=== PATIENT | male | born 1970 | race Caucasian/White ===

== ENCOUNTER 2020-07-27 15:01 | Day surgery (SDC) | payer OTHER ==
[~2020-07-27] VITALS: Ht 182.9 cm; Wt 125.2 kg
[~2020-07-27 15:01] MED LIST changes: -AMLO25TA PO; -ATOR40TA75 PO; -CIPR-250 PO; +CONRAY-60 60% 50ML VIAL (Q9961) As Ordered ONE; -FAMO40TA3 PO; -FLOM0.4C39 PO; +LIDOCAINE 2% 5ML JELLY UROJET As Ordered ONE; -LOSA100T50 PO; -OXYC-1 PO; -RA T500C2 PO; -ULTR50TA8 PO; -tumeric
[2020-07-27] MEDS ORDERED: FAMO40TA3 PO (15:15)
[2020-07-27] MEDS ORDERED: AMLO25TA PO (15:15)
[2020-07-27] MEDS ORDERED: ATOR40TA75 PO (15:15)
[2020-07-27] MEDS ORDERED: tumeric (15:15)
[2020-07-27] MEDS ORDERED: LOSA100T50 PO (15:15)
[2020-07-27] MEDS ORDERED: CIPR-250 PO (15:15)
[2020-07-27] MEDS ORDERED: OXYC-1 PO (15:15)
[2020-07-27] MEDS ORDERED: MIDAZOLAM INJ 2MG/2ML VIAL (J2250 PER 1MG) As Ordered ONE (17:06)
[2020-07-27] MEDS ORDERED: propofoL 200 MG/20 ML VIAL As Ordered ONE (17:06)
[2020-07-27] MEDS ORDERED: fentaNYL 100 MCG/2 ML INJECTION (J3010) As Ordered ONE (17:06)
[2020-07-27] MEDS ORDERED: LIDOCAINE 2% 100MG/5ML SDV (FOR ANES.) As Ordered ONE (17:07)
[2020-07-27] MEDS ORDERED: ONDANSETRON 4MG/2ML VIAL As Ordered ONE (17:08)
[2020-07-27] MEDS ORDERED: dexameTHASONE 4 MG/ML 1ML VIAL (J1100 PER 1MG) As Ordered ONE (17:08)
[2020-07-27] MEDS ORDERED: METOCLOPRAMIDE INJ 10MG/2ML VIAL (J2765 PER 1) As Ordered ONE (17:08)
[2020-07-27] MEDS ORDERED: ceFAZolin SOD 2 GM in IV 1 EA IV ONE (18:00)
[2020-07-27 18:10] VITALS: BP 153/81
[2020-08-10] MEDS ORDERED: RA T500C2 PO (09:26)
--- NOTE | 2020-08-14 07:16 | RO ---
DATE OF OPERATION: 07/27/2020 PREOPERATIVE DIAGNOSIS: Right UPJ calculus. POSTOPERATIVE DIAGNOSIS: Right UPJ calculus. PROCEDURE: Cystoscopy, right retrograde pyelogram and stent insertion. SURGEON: Celestino Mcghee MD ANESTHESIA: MAC. INDICATIONS FOR OPERATION: This is a 49-year-old white male who was diagnosed with right UPJ calculus five days ago. He has continued to have pain and was therefore brought to the operating room for stent insertion. DESCRIPTION OF OPERATION: The patient was anesthetized with MAC anesthesia, placed in the lithotomy position, prepped with Betadine paint, draped in aseptic manner and time out was performed. A 22-Kazakh cystoscope was then inserted into the meatus and advanced under direct vision over 30-degree lens after anesthetizing the urethra with 2% Lidocaine jelly. The bladder was normal. The right ureteral orifice was then catheterized with 5-Kazakh Pollack catheter with the aid of wire guide and retrograde injection of Conray showed an obstruction at the UPJ with hydronephrosis. A wire guide was then passed beyond the stone into the renal pelvis and the Pollack was removed. A 5-Kazakh double-J stent was then passed over this wire and curled well in the renal pelvis and in the bladder when the wire was removed. The distal end was adjusted with a grasping forceps and the bladder was drained. The cystoscope was removed and the patient was awakened and sent to recovery room in stable condition having tolerated the procedure well. Fluoroscopy was used throughout the case to evaluate the obstruction and location and to place the ureteral stent. The patient will be scheduled for ESWL treatment of the right renal calculus. [facility] SHOREMandeep
== END 2020-07-27 18:30 | disposition home or self-care (01) ==
LOC: M SDC 15:01
PROVIDERS: ATTEND Urology
DX: N20.0 Calculus of kidney (principal); I10 Essential (primary) hypertension; E78.2 Mixed hyperlipidemia; E66.9 Obesity, unspecified; Z79.899 Other long term (current) drug therapy
CPT/HCPCS: 52332; 74420; C1769; C2617; J0690; J1100; J2250; J2405; J2765; J3010; Q9961

== ENCOUNTER → 2020-07-27 | Outpatient (CLI) | payer OTHER ==
[~2020-07-27] MED LIST: AMLO25TA PO; ATOR40TA75 PO; CIPR-250 PO; FAMO40TA3 PO; FLOM0.4C39 PO; LOSA100T50 PO; OXYC-1 PO; RA T500C2 PO; ULTR50TA8 PO; tumeric
[2020-07-27 11:30] LABS: APPEARANCE, URINE CLEAR (CLEAR); BACTERIA, URINE AUTO NEGATIVE (NEGATIVE); BILIRUBIN, URINE AUTO NEGATIVE (NEGATIVE); BLOOD, URINE BLOOD NEGATIVE (NEGATIVE); COLOR, URINE YELLOW (YELLOW); GLUCOSE, URINE (UA) AUTO NEGATIVE (NEGATIVE); KETONE, URINE AUTO 2+ mg/dL (NEGATIVE); LEUKOCYTE ESTERASE, URINE AUTO NEGATIVE (NEGATIVE); MUCUS, URINE SMALL (NEGATIVE); NITRITE, URINE AUTO NEGATIVE (NEGATIVE); PROTEIN, URINE AUTO NEGATIVE (NEGATIVE); RBC, URINE AUTO 3 /HPF (0-3); SPECIFIC GRAVITY URINE AUTO 1.019 (1.002-1.035); SQUAMOUS EPITHELIAL CELL UR AU 0 /HPF (0-6); UROBILINOGEN, URINE AUTO 0.2 mg/dL (0.0-2.0); WBC, URINE AUTO 1 /HPF (0-3)
[2020-07-27 11:33] LABS: HEMATOCRIT 44.5 % (42.0-52.0); HEMOGLOBIN 15.1 g/dl (13.5-17.5); MEAN CORPUSCULAR HEMOGLOBIN 31.1 pg (27.0-33.0); MEAN CORPUSCULAR HGB CONC 33.9 g/dl (32.0-36.5); MEAN CORPUSCULAR VOLUME 91.6 fl (80.0-96.0); PLATELET COUNT, AUTOMATED 255 10^3/uL (150-450); RED BLOOD COUNT 4.86 10^6/uL (4.30-6.10); WHITE BLOOD COUNT 12.8 10^3/uL (4.0-10.0)
[2020-07-27 11:44] LABS: INR 1.02; PROTHROMBIN TIME 13.6 SECONDS (11.8-14.0)
[2020-07-27 11:45] LABS: PARTIAL THROMBOPLASTIN TIME 29.6 SECONDS (25.0-38.4)
[2020-07-27 12:02] LABS: CALCIUM LEVEL 9.1 MG/DL (8.5-10.1); CREATININE FOR GFR 1.43 MG/DL (0.70-1.30); GLOMERULAR FILTRATION RATE 56.4 (>60); POTASSIUM SERUM 4.1 MEQ/L (3.5-5.1)
== END ==
LOC: M LAB 09:39
PROVIDERS: ATTEND Urology
DX: N20.0 Calculus of kidney (principal)

== ENCOUNTER → 2020-07-27 | Outpatient (CLI) | payer OTHER | LOC: M LABSMTC 10:12 | PROVIDERS: ATTEND Anesthesiology | DX: Z01.812 Encounter for preprocedural laboratory examination (principal); Z20.828 Contact with and (suspected) exposure to other viral communicable diseases | CPT/HCPCS: C9803; U0002 ==

== ENCOUNTER → 2020-08-12 | Outpatient (CLI) | payer OTHER ==
[~2020-08-12] MED LIST changes: +AMLO25TA PO; +ATOR40TA75 PO; +CIPR-250 PO; -CONRAY-60 60% 50ML VIAL (Q9961) As Ordered ONE; +FAMO40TA3 PO; +FLOM0.4C39 PO; -LIDOCAINE 2% 5ML JELLY UROJET As Ordered ONE; +LOSA100T50 PO; +OXYC-1 PO; +RA T500C2 PO; +ULTR50TA8 PO; +tumeric
== END ==
LOC: M LABSMTC 09:30
PROVIDERS: ATTEND Anesthesiology
DX: Z01.812 Encounter for preprocedural laboratory examination (principal); Z20.828 Contact with and (suspected) exposure to other viral communicable diseases
CPT/HCPCS: C9803; U0003

== ENCOUNTER 2020-08-17 09:07 | Day surgery (SDC) | payer OTHER ==
[~2020-08-17] VITALS: Ht 182.9 cm; Wt 125.6 kg
[~2020-08-17 09:07] MED LIST changes: -FLOM0.4C39 PO; +LR 1,000 ML IV ONE; -ULTR50TA8 PO; +ceFAZolin SOD 2 GM in IV 1 EA IV ONE
[2020-08-17] MEDS ORDERED: propofoL 200 MG/20 ML VIAL As Ordered ONE ×2 (09:48→09:49)
[2020-08-17] MEDS ORDERED: FLOM0.4C39 PO (09:56)
[2020-08-17] MEDS ORDERED: MIDAZOLAM INJ 2MG/2ML VIAL (J2250 PER 1MG) As Ordered ONE (09:56)
[2020-08-17] MEDS ORDERED: ULTR50TA8 PO (09:56)
[2020-08-17] MEDS ORDERED: fentaNYL 100 MCG/2 ML INJECTION (J3010) As Ordered ONE (09:57)
[2020-08-17] MEDS ORDERED: LIDOCAINE 2% 100MG/5ML SDV (FOR ANES.) As Ordered ONE (10:16)
[2020-08-17] MEDS ORDERED: ONDANSETRON 4MG/2ML VIAL As Ordered ONE (10:16)
--- NOTE | 2020-08-17 10:45 | ROOPDOC ---
[facility] Report Of Operation Report of Operation DATE OF PROCEDURE: 08/17/20 PREPROCEDURE DIAGNOSIS: Kidney stone. POSTPROCEDURE DIAGNOSIS: Kidney stone. PROCEDURE: Right extracorporeal shock wave lithotripsy. SURGEON: Ankita Barrera MD CONCESSION STAND ATTENDANT: None. ANESTHESIA: Monitored anesthesia care (MAC). OPERATIVE INDICATIONS: This is a 49-year-old male recently found to have a 7mm obstructing right ureteropelvic junction (UPJ) stone. He had a right ureteral stent placed at that time. He is brought to the operating room today for treatment for the stone. DESCRIPTION OF PROCEDURE: The patient was brought to the operating room and monitored anesthesia care (MAC) was administered. Prophylactic antibiotics were infused. He was then placed in the supine position for right-sided extracorporeal shock wave lithotripsy. The stone could be seen adjacent to the proximal aspect of the stent on fluoroscopy. Fluoroscopy was utilized to monitor stone position and fragmentation throughout the procedure. Shock waves were then delivered to the right UPJ stone, ungated. It appeared to fragment well. There were no arrhythmias. After 2,500 shocks, the procedure was concluded. The patient was then awakened from anesthesia and transported to the recovery room in stable condition. Estimated blood loss: Zero mL. Complications: None. Specimens: None. Plan: The patient will followup in the clinic in a few weeks with imaging prior to assess for residual stone burden. If his stone is completely gone, we will remove his stent at that time. ANKITA BARRERA MD Aug 17, 2020 10:32
[2020-08-17 12:00] VITALS: BP 157/87
--- NOTE | 2020-08-17 19:35 | ECGEPIP ---
[facility] Test Date: 2020-08-17 Pat Name: ROSI SHARP Department: Room: - Gender: Male Quality Management Coordinator: ZULMA : 1970 Requested By: Jeramie Young Order Number: [id number] Reading MD: Amauri Keys Measurements Intervals [place] Rate: 71 P: 58 MD: 158 QRS: 11 QRSD: 97 T: 32 QT: 368 QTc: 402 Interpretive Statements SINUS RHYTHM NO PRIOR Electronically Signed on 08-17-2020 19:35:38 EDT by Amauri Keys
== END 2020-08-17 12:20 | disposition home or self-care (01) ==
LOC: M SDC 09:07
PROVIDERS: ATTEND Urology
DX: N20.0 Calculus of kidney (principal); I10 Essential (primary) hypertension; E78.5 Hyperlipidemia, unspecified; K21.9 Gastro-esophageal reflux disease without esophagitis; Z79.899 Other long term (current) drug therapy
CPT/HCPCS: 50590; 93005; J0690; J2250; J2405; J3010

== ENCOUNTER → 2020-08-17 | Outpatient (CLI) | payer OTHER ==
--- NOTE | 2020-08-21 11:49 | REP ---
KUB ABDOMEN AND PELVIS HISTORY: Renal calculus. Right ureteral stent. TECHNIQUE: Single AP view of the abdomen and pelvis is performed. FINDINGS: Bowel gas pattern is normal with no bowel obstruction. A right ureteral stent is visualized. The proximal end is coiled within the region of the right renal pelvis and the distal end in the region of the urinary bladder. There is an oval calcification overlying the stent in the region of the ureteropelvic junction. The calcification presumably represents a ureteral calculus measuring approximately 10 x 5 mm. I have o prior study for comparison. There are mild degenerative changes of the spine. IMPRESSION: Right ureteral stent appears to be in good position. Along the proximal stent in the region of the ureteropelvic junction, there appears to be an oval calculus measuring about 10 x 5 mm. MTDD
== END ==
LOC: M RAD 08:48
PROVIDERS: ATTEND Nurse Practitioner Women's Health
DX: N20.0 Calculus of kidney (principal)

== ENCOUNTER → 2020-09-11 | Outpatient (CLI) | payer OTHER ==
[~2020-09-11] MED LIST changes: +FLOM0.4C39 PO; -LR 1,000 ML IV ONE; +ULTR50TA8 PO; -ceFAZolin SOD 2 GM in IV 1 EA IV ONE
--- NOTE | 2020-09-11 09:40 | REP ---
INDICATION: KIDNEY CALCULI. COMPARISON: August 17, 2020.. TECHNIQUE: Two supine views. FINDINGS: A double pigtail right ureteral stent is again noted in position. Bowel gas pattern is normal. Psoas margins and flank stripes are intact. No mass, or organomegaly. There is a right ureteral calculus again noted along the course of the right ureteral stent overlapping the right transverse process at L4 on today's film. IMPRESSION: Right mid ureteral calculus persists. Right double pigtail ureteral stent remains in good position. <Electronically signed by Melvin Villarreal > 09/11/20 0941
== END ==
LOC: M WUC 08:28
PROVIDERS: ATTEND Urology
DX: N20.0 Calculus of kidney (principal)

== ENCOUNTER → 2021-03-03 | Outpatient (CLI) | payer OTHER ==
--- NOTE | 2021-03-03 09:00 | REP ---
INDICATION: CALCULUS OF KIDNEY COMPARISON: 09/11/2020 TECHNIQUE: Supine view of the abdomen and pelvis. FINDINGS: Evaluation is limited although small intrarenal calculi cannot be excluded. The bowel gas pattern demonstrates moderate fecal stasis without evidence for obstruction or perforation. No organomegaly. No foreign body. Skeletal structures intact. IMPRESSION: Cannot exclude small intrarenal calculi. <Electronically signed by Eber Blas > 03/03/21 0881
== END ==
LOC: M RAD 08:35
PROVIDERS: ATTEND Urology
DX: N20.0 Calculus of kidney (principal)

== ENCOUNTER → 2021-03-16 | Outpatient (REF) | payer OTHER | LOC: M SMT 13:07 | PROVIDERS: ATTEND Urology | DX: N20.0 Calculus of kidney (principal) ==